=== PATIENT | female | born 1955 | race Caucasian/White ===

== ENCOUNTER → 2021-11-03 | Outpatient (CLI) | payer MEDICARE, BC ==
[~2021-11-03] MED LIST: ANASTROZOLE1 M1 PO; COZAAR100 MG PO; DEPAKOTE250 M1 PO; DIVALPROEX SOD500 MG PO; ESCITALOPRAM20 MG PO; HYDROCHLOROTH12.5 M2 PO; LEVOTHYROXIN0.088 MG PO; VESICARE10 MG PO; [UNRECOGNIZED DRUG - OTHER] PO
== END ==
LOC: VAS 10:56 → RAD 10:56
DX: M79.604 Pain in right leg (principal); Z86.711 Personal history of pulmonary embolism

== ENCOUNTER → 2021-11-26 | Outpatient (CLI) | payer MEDICARE, BC ==
[2021-11-26 09:38] LABS: BASO # 0.08 K/mm3 (0.02-0.10); EOS # 0.19 K/mm3 (0.04-0.40); EOS % 2.2 % (1.0-5.0); HEMATOCRIT 44.9 % (37.0-47.0); LYMPH# 2.98 K/mm3 (1.50-4.00); MEAN CELL VOLUME 89 fl (78-100); MEAN CORPUSCULAR HEMOGLOBIN 30 pg (27-31); MEAN CORPUSCULAR HGB CONC 33 g/dL (33-37); MEAN PLATELET VOLUME 9.3 fl (7.4-10.4); MONO # 0.62 K/mm3 (0.20-0.80); NEU # 4.67 K/mm3 (1.40-6.50); PLATELET COUNT 356 K/mm3 (130-400); RED BLOOD COUNT 5.04 M/mm3 (4.10-5.30); RED CELL DISTRIBUTION WIDTH 12.5 % (11.5-14.5); WHITE BLOOD COUNT 8.6 K/mm3 (4.8-10.8)
[2021-11-26 09:43] LABS: ALBUMIN 3.9 g/dL (3.4-4.8)
[2021-11-26 09:44] LABS: CALCIUM 9.6 mg/dL (8.3-10.5)
[2021-11-26 09:46] LABS: TOTAL PROTEIN 7.3 g/dL (6.2-8.1)
[2021-11-26 09:48] LABS: TOTAL BILIRUBIN 0.5 mg/dL (0.2-1.2)
[2021-11-26 10:05] LABS: URINE APPEARANCE HAZY; URINE BILIRUBIN NEGATIVE (NEGATIVE); URINE BLOOD NEGATIVE (NEGATIVE); URINE COLOR YELLOW; URINE GLUCOSE NEGATIVE (NEGATIVE); URINE KETONE NEGATIVE (NEGATIVE); URINE LEUKOCYTE ESTERASE 1+ (NEGATIVE); URINE NITRATE POSITIVE (NEGATIVE); URINE PROTEIN(semi-quant) NEGATIVE (NEGATIVE); URINE UROBILINOGEN NORMAL (NORMAL)
== END ==
LOC: LAB 09:23
PROVIDERS: Family Medicine
DX: I10 Essential (primary) hypertension (principal); F32.4 Major depressive disorder, single episode, in partial remission; E78.00 Pure hypercholesterolemia, unspecified; E03.9 Hypothyroidism, unspecified

== ENCOUNTER 2021-12-08 07:59 | Outpatient (RCR) | payer MEDICARE, BC | END 2022-01-05 | disposition home or self-care (01) | LOC: PT | DX: M54.10 Radiculopathy, site unspecified (principal) ==

== ENCOUNTER → 2023-04-29 | Outpatient (CLI) | payer MEDICARE, BC | LOC: LAB 11:13 | DX: E03.9 Hypothyroidism, unspecified (principal) ==